=== PATIENT | male | born 1980 | race Hispanic/Latino ===

== ENCOUNTER 2025-06-04 15:23 | Emergency (ER) | payer OTHER ==
[2025-06-04 16:29] LABS: #Basophils 0.08 10x3/uL (0.0-0.2); #Eosinophils 0.25 10x3/uL (0.0-0.5); #Monocytes 1.15 10x3/uL (0.0-1.1); #Neutrophils 9.46 10x3/uL (1.5-8.4); %Basophils 0.6 % (0.0-2.0); %Eosinophils 2.0 % (0.0-6.0); %Lymphocytes 12.5 % (18.0-47.0); %Monocytes 9.2 % (0.0-10.0); %Neutrophils 75.5 % (40.0-75.0); Hematocrit 41.0 % (38.8-50.0); Hemoglobin 12.9 g/dL (13.5-17.5); Mean Corpuscular Hemoglobin 26.7 pg (27.0-33.0); Mean Corpuscular Volume 84.7 fL (81.2-95.1); Platelet Count 292 10x3/uL (150-450); Red Blood Cell (RBC) Count 4.84 10x6/uL (4.32-5.72); White Blood Cell (WBC) Count 12.54 10x3/uL (3.5-10.5)
[2025-06-04 16:43] LABS: ALT (SGPT) 37 U/L (Less than 45); AST (SGOT) 38 U/L (11-34); Albumin 3.4 g/dL (3.1-4.5); Alkaline Phosphatase 108 U/L (40-110); Anion Gap 13 mmol/L (10-20); BUN (Urea Nitrogen) 18 mg/dL (8.9-20.6); Bilirubin, Total 0.5 mg/dL (0.3-1.2); Calc. Creatinine Clearance 0 mL/min (70-130); Calcium 8.5 mg/dL (7.8-10.44); Carbon Dioxide 27 mmol/L (22-29); Chloride 101 mmol/L (98-107); Globulin 3.5 g/dL (2.4-3.5); Glucose 106 mg/dL (70-105); Potassium 3.8 mmol/L (3.5-5.1); Sodium 137 mmol/L (136-145)
[2025-06-04 16:47] LABS: Troponin I Less than 0.010 ng/mL (< 0.028)
== END 2025-06-04 18:14 | disposition home or self-care (01) ==
LOC: CSHERS 15:23
DX: S30.11XA Contusion of abdominal wall, initial encounter (principal); L03.311 Cellulitis of abdominal wall; E66.01 Morbid (severe) obesity due to excess calories; G47.419 Narcolepsy without cataplexy; G47.33 Obstructive sleep apnea (adult) (pediatric); I50.9 Heart failure, unspecified; F17.210 Nicotine dependence, cigarettes, uncomplicated; V89.2XXA Person injured in unspecified motor-vehicle accident, traffic, initial encounter
CPT/HCPCS: 36415; 71045; 80053; 84484; 85025; 93005